=== PATIENT | male | born 1965 | race Caucasian/White ===

== ENCOUNTER 2021-12-22 12:53 | Outpatient (CLI) | payer OTHER, SELFPAY ==
--- NOTE | ~2021-12-22 | US_ITS ---
EXAMINATION: US axilla RT DATE: 12/22/2021 13:23 INDICATION: Lump in the right axilla TECHNIQUE: Multiple grayscale and Doppler ultrasound images of the region of concern at the right axi lla were obtained. COMPARISON: None FINDINGS: At the region of concern there is a 2.0 x 0.6 x 1.0 cm hypoechoic lesion with irregular margins and w ithout intravascular flow on color Doppler. There is increased echogenicity in the surrounding fat co nsistent with inflammation. In one of the sets of cine images there is suggestion of subtle hypoechoi c tract extending to the skin surface. IMPRESSION: 1. 2.0 x 0.6 x 1.0 cm irregular hypoechoic lesion in the subcutaneous tissues at the region of concer n. Appearance favors most consistent with an abscess. Differential includes epidermoid/sebaceous cyst or less likely a lymph node or solid neoplasm. Reviewed, dictated and finalized at location A. IMPRESSION: 1. 2.0 x 0.6 x 1.0 cm irregular hypoechoic lesion in the subcutaneous tissues a t the region of concern. Appearance favors most consistent with an abscess. Dif ferential includes epidermoid/sebaceous cyst or less likely a lymph node or maribel id neoplasm.
== END 2021-12-22 12:54 | disposition home or self-care (01) ==
LOC: ANHIMG 12:59
PROVIDERS: PCP Internal Medicine; Visit Provider Internal Medicine
DX: R22.31 Localized swelling, mass and lump, right upper limb (principal)
CPT/HCPCS: 76882

== ENCOUNTER 2022-03-10 13:35 | Outpatient (CLI) | payer OTHER, SELFPAY ==
--- NOTE | ~2022-03-10 | MR_ITS ---
EXAMINATION: MR knee LT wo con DATE: 03/10/2022 14:31 INDICATION: Left knee sprain with medial knee pain and popping post injury 3 weeks prior TECHNIQUE: Magnetic resonance imaging (MRI) of the left knee was performed without intravenous contra st. Sequences included coronal PD-weighted FSE, coronal PD-weighted FS FSE, sagittal T2-weighted FSE , sagittal PD-weighted FS FSE and axial PD weighted fat saturated FSE. COMPARISON: None. FINDINGS: Evaluation mildly limited by some degree of motion artifact or blurring on multiple sequences includi ng a repeated axial and coronal sequences. Medial compartment: Longitudinal horizontal tear extending to the inferior articular surface of the posterior horn of the medial meniscus. Could not exclude that this is mildly complex with suggestion of possible additiona l secondary vertical tear plane along the inner free edge. Mild partial-thickness cartilage loss with smooth chondral surface along the anterior weightbearing medial femoral condyle. Lateral compartment: Lateral meniscus is normal. Mild partial-thickness cartilage loss with smooth chondral surface along the lateral aspect of the posterior weightbearing lateral femoral condyle. Patellofemoral compartment: Suggestion of a partial-thickness chondral fissure at the central aspect of the patellar apical ridge although specificities decreased by the motion artifact. Trochlear cartilage appears normal. Ligaments and tendons: Anterior and posterior cruciate ligaments are normal. The medial collateral ligament and fibular silvia ateral ligament complex are normal. The extensor mechanism is normal. The visualized medial and later al hamstring tendons as well as the iliotibial band are normal. Fluid: Physiologic amount of fluid in the joint space. No loose osteochondral bodies identified. Small multi lobulated Knapp's cyst. Osseous/other: Mild marrow edema along the medial rim of the anterior weightbearing medial femoral condyle which minna ears more prominent along the nonarticular surface which suggests possibility of a bone contusion. Al ternatively this could be related to overlying chondromalacia. Otherwise normal marrow signal. No fra cture or pathologic marrow replacing process. IMPRESSION: 1. Assessment mildly limited by motion artifact to some degree on all sequences including a repeated sequences. 2. Tear at the posterior horn of the medial meniscus. 3. Minimal tricompartmental osteoarthritis with mild partial-thickness cartilage loss along portions of the weightbearing medial and lateral femoral condyles and suggestion of partial-thickness chondral fissuring at the patellar apical ridge. 4. Marrow edema along the medial rim of the anterior weightbearing medial femoral condyle which could be related to bone contusion or overlying chondromalacia. 5. Small multilobulated Knapp's cyst. Reviewed, dictated and finalized at location A. IMPRESSION: 1. Assessment mildly limited by motion artifact to some degree on all sequences including a repeated sequences. 2. Tear at the posterior horn of the medial meniscus. 3. Minimal tricompartmental osteoarthritis with mild partial-thickness cartilag e loss along portions of the weightbearing medial and lateral femoral condyles and suggestion of partial-thickness chondral fissuring at the patellar apical r idge. 4. Marrow edema along the medial rim of the anterior weightbearing medial femor al condyle which could be related to bone contusion or overlying chondromalacia . 5. Small multilobulated Knapp's cyst.
== END 2022-03-10 13:36 | disposition home or self-care (01) ==
DX: S83.242A Other tear of medial meniscus, current injury, left knee, initial encounter (principal); X58.XXXA Exposure to other specified factors, initial encounter; M71.22 Synovial cyst of popliteal space [Baker], left knee; M17.12 Unilateral primary osteoarthritis, left knee
CPT/HCPCS: 73721